=== PATIENT | male | born 1975 | race African-American/Black ===

== ENCOUNTER 2017-07-20 01:53 | Observation (INO) | END 2017-07-20 15:20 | disposition left against medical advice (07) ==

== ENCOUNTER 2017-07-24 12:44 | Inpatient (IN) | END 2017-08-01 11:45 | disposition home or self-care (01) | DRG 315 ==

== ENCOUNTER 2017-09-10 00:46 | Emergency (ER) | END 2017-09-10 07:42 | disposition home or self-care (01) ==

== ENCOUNTER 2017-10-18 09:00 | Emergency (ER) | END 2017-10-18 20:41 ==

== ENCOUNTER 2017-11-13 14:08 | Emergency (ER) | END 2017-11-13 21:00 | disposition home or self-care (01) ==

== ENCOUNTER 2017-11-13 23:20 | Emergency (ER) | END 2017-11-15 07:36 ==

== ENCOUNTER 2018-03-17 22:39 | Emergency (ER) | END 2018-03-18 01:21 | disposition home or self-care (01) ==